=== PATIENT | female | born 1945 | race Caucasian/White ===

== ENCOUNTER → 2021-05-11 | Outpatient (CLI) | payer MEDICARE ==
[~2021-05-11] MED LIST: ACET325T9 PO; ATEN25TA PO; DIPH25CA58 PO; LEVO50TA5 PO
[2021-05-11 13:36] LABS: BASO % 1 % (0-3); EOS % 1 % (0-3); HEMATOCRIT 26.6 % (36.0-47.0); HEMOGLOBIN 8.8 g/dL (12.0-15.5); LYMPH # 1.9 x10^3/uL (1.0-4.8); LYMPH % 37 % (24-48); MEAN CORPUSCULAR HEMOGLOBIN 35 pg (25-35); MEAN CORPUSCULAR HGB CONC 33 g/dL (31-37); MEAN CORPUSCULAR VOLUME 105 fL (79-100); MONO # 0.4 x10^3/uL (0.0-1.1); MONO % 8 % (0-9); NEUT # 2.8 x10^3/uL (1.8-7.7); NEUT % 54 % (31-73); PLATELET COUNT 311 x10^3/uL (140-400); RED BLOOD COUNT 2.54 x10^6/uL (3.50-5.40); RED CELL DISTRIBUTION WIDTH 15.5 % (11.5-14.5); WHITE BLOOD COUNT 5.2 x10^3/uL (4.0-11.0)
[2021-05-11 13:54] LABS: CALCIUM 9.4 mg/dL (8.5-10.1); GFR 54.2; POTASSIUM 3.6 mmol/L (3.5-5.1)
[2021-05-11 14:02] LABS: ALBUMIN 2.8 g/dL (3.4-5.0); ALBUMIN/GLOBULIN RATIO 0.4 (1.0-1.7); TOTAL BILIRUBIN 0.4 mg/dL (0.2-1.0); TOTAL PROTEIN 9.3 g/dL (6.4-8.2)
[2021-05-14 14:10] LABS: COMMENT IMMUNOFIX SERUM Note: (.); IMMUNOGLOBULIN A 25 mg/dL (64-422); IMMUNOGLOBULIN G 4912 mg/dL (586-1602); IMMUNOGLOBULIN M 25 mg/dL (26-217)
[2021-05-14 16:10] LABS: ALBUM 3.5 g/dL (2.9-4.4); ALPHA 1 0.3 g/dL (0.0-0.4); ALPHA 2 0.8 g/dL (0.4-1.0); BETA 0.8 g/dL (0.7-1.3); GAMMA 3.8 g/dL (0.4-1.8); PROTEIN TOTAL 9.2 g/dL (6.0-8.5); SPEP AG RATIO 0.6 (0.7-1.7)
[2021-05-15 11:12] LABS: KAPPA FREE 105.4 mg/L (3.3-19.4); KAPPA LAMBDA RATIO 4.04 (0.26-1.65); LAMBDA FREE 26.1 mg/L (5.7-26.3)
== END ==
LOC: ONCLAB 12:51
PROVIDERS: ATTEND Internal Medicine Hematology & Oncology
DX: C90.00 Multiple myeloma not having achieved remission (principal)
CPT/HCPCS: 36415; 80053; 82232; 82525; 82607; 82746; 82784; 83520; 84165; 85025; 86334

== ENCOUNTER 2021-06-29 15:58 | Emergency (ER) | payer MEDICARE ==
[~2021-06-29] VITALS: Ht 147.3 cm; Wt 53.6 kg
[~2021-06-29 15:58] MED LIST changes: +ALBU2.5V8 NEB; +BUDE0.5A NEB; +DOXY100C3 PO; +FLUT16SP NS; +GUAI5SYR PO; +LORA0.5T96 PO
--- NOTE | 2021-06-29 20:33 | PHYS DOC ---
Past Medical History Additional Past Medical Histor: BACTERIAL BLOOD INFECTION 2014 Past Surgical History: Other Additional Past Surgical Histo: LOWER SIGMOID COLON 1995, LEFT SHOULDER ABCESS REMOVAL 2014 Smoking Status: Current Some Day Smoker Alcohol Use: None General Adult EDM: Chief Complaint: ABNORMAL LABS HPI: HPI: 76-year-old female past medical history of hypothyroidism, multiple myeloma, COPD on 3 L nasal cannula and hypertension, presents to the ED with her son, c/o low hemoglobin (lab paperwork with her). Patient follows with Dr. Renee and H/H was checked 06/11, was 7.1/21.9 and 06/28 was 6.8/22. Patient with no prior history of blood transfusions. Not on any anticoagulants. Presents to the ED from [facility] after patient was recently admitted to the hospital for acute respiratory failure with hypoxia (2/2 midl CHF and copd). Is not vaccinated for COVID. Has not had a positive COVID test. Patient does complain of exertional dyspnea and shortness of breath at rest. EMR was reviewed and patient's hemoglobin was 7.6 on June 05. Pt reports h/o anxiety that she takes medications for, requests anxiety medication on arrival. No h/o liver disease of GI bleeding. Review of Systems: Review of Systems: Constitutional: Denies fever or chills. [] Eyes: Denies change in visual acuity. [] HENT: Denies nasal congestion or sore throat. [] Respiratory: Denies cough or hemoptysis Cardiovascular: Denies chest pain or edema. [] GI: Denies melena, hematochezia or hematemesis : Denies incontinence or saddle anesthesia Musculoskeletal: Denies back pain or joint pain. [] Integument: Denies rash or diaphoresis Neurologic: Denies headache, focal weakness or sensory changes. [] Endocrine: Denies polyuria or polydipsia. [] Lymphatic: Denies swollen glands. [] Psychiatric: Denies depression or anxiety. [] Heart Score: C/O Chest Pain: No Risk Factors: Risk Factors: DM, Current or recent (<one month) smoker, HTN, HLP, family history of CAD, obesity. Risk Scores: Score 0 - 3: 2.5% MACE over next 6 weeks - Discharge Home Score 4 - 6: 20.3% MACE over next 6 weeks - Admit for Clinical Observation Score 7 - 10: 72.7% MACE over next 6 weeks - Early Invasive Strategies Allergies: Allergies: Allergies Coded Allergies Type Severity Reaction Last Updated Verified cetirizine Allergy Severe Swelling 05/31/21 Yes Physical Exam: PE: Constitutional: Well developed, well nourished, no acute distress, non-toxic appearance. HENT: Normocephalic, atraumatic, Eyes: EOMI, conjunctiva normal, no discharge. Neck: Normal range of motion, supple, Cardiovascular: S1/2 present, regular rhythm Lungs & Thorax: Speaking in full sentences, bilateral equal chest rise, no tachypnea or increased work of breathing, on 3L NC Abdomen: soft, no tenderness, Skin: Warm, dry, no erythema, no rash. [] Extremities: No tenderness, no cyanosis, Neurologic: Alert -has some forgetfulness, suspect early dementia, normal motor function, normal sensory function, no focal deficits noted. [] Psychologic: Affect normal, judgement normal, mood normal. [] EKG: EKG: Sinus rhythm 97 bpm, left axis deviation, normal intervals, T wave inversion lead III, PVC present, no ST elevation or ST depression, no active chest pain Radiology/Procedures: Radiology/Procedures: IMAGING REPORT Signed PATIENT: JANAE FORTUNE ACCOUNT: [id number] : 1945 LOCATION: ER AGE: 76 SEX: F EXAM STATUS: REG ER ORD. PHYSICIAN: CORIN CASTELLON DO REASON: dypnea PROCEDURE: CHEST AP ONLY Exam: Chest one view INDICATION: Dyspnea TECHNIQUE: Frontal view of the chest Comparisons: 05/29/2020 FINDINGS: The cardiomediastinal silhouette and pulmonary vessels are within normal limits. The lung and pleural spaces are clear. IMPRESSION: No acute cardiopulmonary process. Electronically signed by: Megan Henriquez MD (06/29/2021 9:59 PM) [facility] DICTATED and SIGNED BY: MEGAN HENRIQUEZ MD DATE: 06/29/21 [id number] IMAGING REPORT Signed PATIENT: JANAE FORTUNE ACCOUNT: [id number] : 1945 LOCATION: ER AGE: 76 SEX: F EXAM STATUS: REG ER ORD. PHYSICIAN: CORIN CASTELLON DO REASON: soa, r/o pe, h/o multiple myeloma, OMNI 350 80 ML IV PROCEDURE: CT ANGIOGRAPHY CHEST EXAM: CT chest with contrast - pulmonary embolus protocol CLINICAL HISTORY: Reason: soa, r/o pe, h/o multiple myeloma, OMNI 350 80 ML IV / Spl. Instructions: IV WASNT GOING IN THEN LEAKED RESCANNED 3RD TIME WITH 70 ML / History: . COMPARISON: None. TECHNIQUE: CT of the chest following the administration of intravenous contrast during the pulmonary arterial phase. Axial, coronal and sagittal reformatted images were generated including MIP images. Of note, contrast was leaking from the contrast tubing and therefore exam was repeated. ---PQRS compliance statement - One or more of the following individualized dose reduction techniques were utilized for this study: 1. Automated exposure control 2. Adjustment of the mA and/or kV according to patient size 3. Use of iterative reconstruction technique--- FINDINGS: CHEST: Diagnostic quality: Suboptimal contrast bolus despite repeating examination. Motion artifact also limits evaluation. Pulmonary emboli: No pulmonary emboli to the level of the segmental branches. More peripheral vessels are not well assessed. Right heart strain: None Pulmonary arteries: Normal in caliber. Heart is mildly enlarged. No pleural effusion. No pneumothorax. No pericardial effusion. Linear opacities lingula and medial left lower lobe likely scarring or atelectasis. Mild background of emphysematous change. 7 mm right upper lobe lung nodule (series 13 image 15). Wedge-shaped nodularity in the middle lobe is favored to represent scarring/atelectasis at the recommend close attention on follow-up. Visualized Upper abdomen: Unremarkable Bones: Multilevel degenerative changes of the spine are seen. Height loss of several mid-lower thoracic levels, age-indeterminate compression fractures but grossly stable to 05/16/2021. IMPRESSION: 1. No pulmonary emboli to the level of the segmental branches. More peripheral vessels are not well assessed. 2. 7 mm right upper lobe lung nodule. Per Fleischner Society guidelines for incidentally found solid nodule measuring 6-8 mm, initial CT follow-up is recommended in 6-12 months. Additional follow-up can be considered in 18-24 month based on risk factors. 3. Wedge-shaped nodularity in the middle lobe likely scarring or atelectasis however recommend close attention on follow-up. Electronically signed by: Rogerio Garcia MD (06/30/2021 12:34 AM) [facility] DICTATED and SIGNED BY: ROGERIO GARCIA MD DATE: 06/30/21 [id number] 0 Course & Med Decision Making: Course & Med Decision Making Pertinent Labs and Imaging studies reviewed. (See chart for details) Concern for shortness of breath in the setting of macrocytic anemia, hemoglobin 7.9 and 8 on repeat labs. Patient on her current baseline oxygen. CT of the chest did not show any pulmonary embolus but did show incidental right upper lung nodule. Imaging report printed and given to take with patient to her PCP for follow-up. Patient with no signs of active bleeding. No indication for transfusion at this time. Will discharge home with strict ED return precautions were given for syncope, chest pain, hemoptysis, increased work of breathing or worsening shortness of breath. Encouraged urgent outpatient follow-up with PMD and hematology/oncology for management of multiple myeloma and anemia. Life- threatening processes were considered but are low suspicion at this time, given history, physical exam and ED workup. Pt was educated on all prescription medications and adverse effects. All patient's questions were answered and pt was stable at time of discharge. Life/limb-threatening differential includes but is not limited to, ACS, dysrhythmia, pneumothorax or hemothorax, pulmonary embolus, pneumonia, bronchoconstriction, pulmonary edema, angioedema, epiglottitis, tracheitis, Alton's angina, RPA/COATING OPERATOR, anaphylaxis, angioedema, cardiac tamponade or murmurs, pericarditis, myocarditis, poisoning or toxicity, sepsis or autoimmune/neurologic disease. I have spoken with the patient and/or caregivers. I explained the patient's condition, diagnoses and treatment plan based on the information available to me at this time. I have answered the patient and/or caregiver's questions and addressed any concerns. The patient and/or caregivers have a good understanding of patient's diagnosis, condition and treatment plan as can be expected at this point. Vital signs have been stable. Patient's condition is stable and appropriate for discharge from the emergency department. Patient will pursue further outpatient evaluation with primary care physician or other designated or consulting physician as outlined in the discharge instructions. The patient and/or caregivers are agreeable to this plan of care and follow-up instructions have been explained in detail. The patient and/or caregivers have received these instructions in written form and have expressed an understanding of the discharge instructions. The patient and/or caregivers are aware that any significant change of condition or worsening of symptoms should prompt immediate return to this or the closest emergency department or pa ll to 911. Corinne Disclaimer: Corinne Disclaimer: This electronic medical record was generated, in whole or in part, using a voice recognition dictation system. Departure Departure Impression: Primary Impression: Macrocytic anemia Additional Impressions: Multiple myeloma Lung nodule Disposition: HOME / SELF CARE / HOMELESS Condition: STABLE Referrals: FERN NUNEZ MD (PCP) Follow-up with your primary care physician in 24 to 48 hours OR FOLLOW UP WITH FAMILY MEDICINE: [address] [facility] [place] [address] Patient Instructions: Anemia, Nonspecific-Brief, Multiple Myeloma Additional Instructions: FOLLOW UP WITH: FOR DEFINITIVE MANAGEMENT of anemia and multiple myeloma Hematology/Oncology [facility] [address] [facility] [address] [place] [address] EMERGENCY DEPARTMENT GENERAL DISCHARGE INSTRUCTIONS Thank you for coming to [facility] Emergency Department (ED) today and trusting us with you care. We trust that you had a positive experience in our Emergency Department. If you wish to speak to the department management, you may call the Director at [phone]. YOUR FOLLOW UP INSTRUCTIONS ARE FOLLOWS: 1. Do you have a private Doctor? If you do not have a private doctor, please ask for a resource list of physicians or clinics that may be able to assist you with follow up care. 2. The Emergency Physicain has interpreted your x-rays. The X-Ray specialist will also review them. If there is a change in the findings, you will be notified in 48 hours when at all possible. 3. A lab test or culture has been done, your results will be reviewed and you will be notified if you need a change in treatment. ADDITIONAL INSTRUCTIONS AND INFORMATION: 1. Your care today has been supervised by a physician who is specially trained in emergency care. Many problems require more than one evaluation for a complete diagnosis and treatment. We recommend that you schedule your follow up appointment as recommended to ensure complete treatment of you illness or injury. If you are unable to obtain follow up care and continue to have a problem, or if your condition worsens, we recommend that you return to the ED. 2. We are not able to safely determine your condition over the phone nor are we able to give sound medical advice over the phone. For these safety reasons, if you call for medical advice we will ask you to come to the ED for further evaluation. 3. If you have any questions regarding these discharge instructions please call the ED at [phone]. SAFETY INFORMATION: In the interest of safety, wellness, and injury prevention; we encourage you to wear your sealbelt, if you smoke; quite smoking, and we encourage family to use a protective helmet for bicycling and other sporting events that present an increased risk for head injury. IF YOUR SYMPTOMS WORSEN OR NEW SYMPTOMS DEVELOP, OR YOU HAVE CONCERNS ABOUT YOUR CONDITION; OR IF YOUR CONDITION WORSENS WHILE YOU ARE WAITING FOR YOUR FOLLOW UP APPOINTMENT; EITHER CONTACT YOUR PRIMARY CARE DOCTOR, THE PHYSICIAN WHOSE NAME AND NUMBER YOU WERE GIVEN, OR RETURN TO THE ED IMMEDIATELY. CORIN FISH DO Jun 29, 2021 20:33
[2021-06-29] MEDS ORDERED: IV NORMAL SALINE 500ML BAG 500 ML IV ONE (21:00)
[2021-06-29 21:19] LABS: BASO % 1 % (0-3); EOS % 1 % (0-3); HEMATOCRIT 22.9 % (36.0-47.0); HEMOGLOBIN 7.9 g/dL (12.0-15.5); LYMPH # 1.5 x10^3/uL (1.0-4.8); LYMPH % 37 % (24-48); MEAN CORPUSCULAR HEMOGLOBIN 35 pg (25-35); MEAN CORPUSCULAR HGB CONC 34 g/dL (31-37); MEAN CORPUSCULAR VOLUME 103 fL (79-100); MONO # 0.4 x10^3/uL (0.0-1.1); MONO % 10 % (0-9); NEUT % 51 % (31-73); PLATELET COUNT 313 x10^3/uL (140-400); RED BLOOD COUNT 2.22 x10^6/uL (3.50-5.40); RED CELL DISTRIBUTION WIDTH 15.8 % (11.5-14.5)
[2021-06-29 21:28] LABS: CALCIUM 8.2 mg/dL (8.5-10.1); CREATININE 0.7 mg/dL (0.6-1.0); GFR 81.8; POTASSIUM 3.3 mmol/L (3.5-5.1); PROTHROMBIN TIME PATIENT 13.2 SEC (11.7-14.0)
[2021-06-29 21:36] LABS: ALBUMIN 2.6 g/dL (3.4-5.0); ALBUMIN/GLOBULIN RATIO 0.4 (1.0-1.7); TOTAL BILIRUBIN 0.2 mg/dL (0.2-1.0); TOTAL PROTEIN 8.5 g/dL (6.4-8.2)
--- NOTE | 2021-06-29 22:01 | RAD ---
Exam: Chest one view INDICATION: Dyspnea TECHNIQUE: Frontal view of the chest Comparisons: 05/29/2020 FINDINGS: The cardiomediastinal silhouette and pulmonary vessels are within normal limits. The lung and pleural spaces are clear. IMPRESSION: No acute cardiopulmonary process. Electronically signed by: Megan Mckeon MD (06/29/2021 9:59 PM) [facility]
[2021-06-29] MEDS ORDERED: IOHEXOL 350 MG/ML 100 ML VIAL. IV ONE (23:15)
[2021-06-29] MEDS ORDERED: CONTRAST GIVEN. MC PRN (23:15)
--- NOTE | 2021-06-30 00:36 | RAD ---
EXAM: CT chest with contrast - pulmonary embolus protocol CLINICAL HISTORY: Reason: soa, r/o pe, h/o multiple myeloma, OMNI 350 80 ML IV / Spl. Instructions: I V WASNT GOING IN THEN LEAKED RESCANNED 3RD TIME WITH 70 ML / History: . COMPARISON: None. TECHNIQUE: CT of the chest following the administration of intravenous contrast during the pulmonary arterial phase. Axial, coronal and sagittal reformatted images were generated including MIP images. O f note, contrast was leaking from the contrast tubing and therefore exam was repeated. ---PQRS compliance statement - One or more of the following individualized dose reduction techniques were utilized for this study: 1. Automated exposure control 2. Adjustment of the mA and/or kV according to patient size 3. Use of iterative reconstruction technique--- FINDINGS: CHEST: Diagnostic quality: Suboptimal contrast bolus despite repeating examination. Motion artifact also martines its evaluation. Pulmonary emboli: No pulmonary emboli to the level of the segmental branches. More peripheral vessel s are not well assessed. Right heart strain: None Pulmonary arteries: Normal in caliber. Heart is mildly enlarged. No pleural effusion. No pneumothorax. No pericardial effusion. Linear opacities lingula and medial left lower lobe likely scarring or atelectasis. Mild background o f emphysematous change. 7 mm right upper lobe lung nodule (series 13 image 15). Wedge-shaped nodulari ty in the middle lobe is favored to represent scarring/atelectasis at the recommend close attention o n follow-up. Visualized Upper abdomen: Unremarkable Bones: Multilevel degenerative changes of the spine are seen. Height loss of several mid-lower thorac ic levels, age-indeterminate compression fractures but grossly stable to 05/16/2021. IMPRESSION: 1. No pulmonary emboli to the level of the segmental branches. More peripheral vessels are not well assessed. 2. 7 mm right upper lobe lung nodule. Per Fleischner Society guidelines for incidentally found solid nodule measuring 6-8 mm, initial CT follow-up is recommended in 6-12 months. Additional follow-up ca n be considered in 18-24 month based on risk factors. 3. Wedge-shaped nodularity in the middle lobe likely scarring or atelectasis however recommend close attention on follow-up. Electronically signed by: Rogerio Hopkins MD (06/30/2021 12:34 AM) [facility]
[2021-06-30 02:09] VITALS: BP 166/85
--- NOTE | 2021-06-30 03:54 | EKG ---
[facility] [address] [place] [address] Test Date: 2021-06-29 Test Time: 22:24:24 Pat Name: JANAE FORTUNE Department: Room: Gender: F Mailing Jogger: : 1945 Requested By: CORIN CASTELLON Order Number: [id number] Reading MD: Measurements Intervals Rowley Rate: 97 P: -24 MD: 132 QRS: -21 QRSD: 84 T: 11 QT: 334 QTc: 428 Interpretive Statements SINUS RHYTHM VENTRICULAR PREMATURE COMPLEX(ES) LEFTWARD AXIS CONSIDER LEFT VENTRICULAR HYPERTROPHY ST & T ABNORMALITY, CONSIDER HIGH LATERAL ISCHEMIA OR LEFT VENTRICULAR STRAIN ABNORMAL ECG RI6.01 No previous ECG available for comparison
== END 2021-06-30 02:40 | disposition home or self-care (01) ==
LOC: ER 15:58
DX: D53.9 Nutritional anemia, unspecified (principal); C90.00 Multiple myeloma not having achieved remission; R91.1 Solitary pulmonary nodule; F17.200 Nicotine dependence, unspecified, uncomplicated
CPT/HCPCS: 36415; 71045; 71275; 80053; 84484; 85018; 85025; 85610; 85730; 86850; 86900; 86901; 93005; 96361; 96374; 99285; J2060; J7040; Q9967; 96375

== ENCOUNTER → 2021-07-17 | Outpatient (CLI) | payer MEDICARE ==
[2021-07-02 13:08] VITALS: BP 126/71
[2021-07-17 11:22] LABS: BASO # 0.1 x10^3/uL (0.0-0.2); BASO % 1 % (0-3); EOS % 0 % (0-3); HEMATOCRIT 24.4 % (36.0-47.0); LYMPH # 0.7 x10^3/uL (1.0-4.8); LYMPH % 8 % (24-48); MEAN CORPUSCULAR HEMOGLOBIN 32 pg (25-35); MEAN CORPUSCULAR HGB CONC 33 g/dL (31-37); MEAN CORPUSCULAR VOLUME 97 fL (79-100); MONO # 0.6 x10^3/uL (0.0-1.1); MONO % 6 % (0-9); NEUT # 8.4 x10^3/uL (1.8-7.7); NEUT % 86 % (31-73); PLATELET COUNT 422 x10^3/uL (140-400); RED BLOOD COUNT 2.52 x10^6/uL (3.50-5.40); RED CELL DISTRIBUTION WIDTH 18.9 % (11.5-14.5); WHITE BLOOD COUNT 9.8 x10^3/uL (4.0-11.0)
[2021-07-17 11:30] LABS: CREATININE 0.9 mg/dL (0.6-1.0); GFR 61.2; POTASSIUM 3.7 mmol/L (3.5-5.1)
[2021-07-17 11:36] LABS: ALBUMIN 1.8 g/dL (3.4-5.0); ALBUMIN/GLOBULIN RATIO 0.3 (1.0-1.7); TOTAL BILIRUBIN 0.3 mg/dL (0.2-1.0); TOTAL PROTEIN 7.8 g/dL (6.4-8.2)
[2021-07-17 12:17] LABS: % BANDS 7 % (0-9); % LYMPHS 7 % (24-48); % MONOS 3 % (0-10); % SEGS 83 % (35-66); PLT ESTIMATE ADEQUATE (ADEQUATE)
[2021-07-18 13:30] LABS: ALBUM 2.5 g/dL (2.9-4.4); ALPHA 1 0.4 g/dL (0.0-0.4); ALPHA 2 0.9 g/dL (0.4-1.0); BETA 0.7 g/dL (0.7-1.3); COMMENT IMMUNOFIX SERUM Note: (.); GAMMA 2.4 g/dL (0.4-1.8); IMMUNOGLOBULIN A 45 mg/dL (64-422); IMMUNOGLOBULIN G 3067 mg/dL (586-1602); IMMUNOGLOBULIN M 22 mg/dL (26-217); PROTEIN TOTAL 6.9 g/dL (6.0-8.5); SPEP AG RATIO 0.6 (0.7-1.7)
[2021-07-18 14:13] LABS: KAPPA FREE 48.1 mg/L (3.3-19.4); KAPPA LAMBDA RATIO 2.39 (0.26-1.65); LAMBDA FREE 20.1 mg/L (5.7-26.3)
== END ==
LOC: ONCLAB 11:03
PROVIDERS: ATTEND Internal Medicine Hematology & Oncology
DX: C90.00 Multiple myeloma not having achieved remission (principal)
CPT/HCPCS: 36415; 80053; 82784; 83520; 84165; 85007; 85025; 86334

== ENCOUNTER → 2021-07-20 | Outpatient (CLI) | payer MEDICARE ==
[2021-07-02 13:08] VITALS: BP 126/71
--- NOTE | 2021-07-20 10:32 | RAD ---
EXAM: Abdomen sonogram. HISTORY: Pain. TECHNIQUE: Sonographic imaging of the abdomen was performed. COMPARISON: CT dated 05/19/2021. FINDINGS: The liver is enlarged. There is coarse hepatic echotexture. No focal hepatic lesion is seen . There is cholelithiasis. There is no evidence of cholecystitis. The common bile duct is normal in c aliber for patient age. There is a 2.9 cm cyst within the inferior left kidney. The right kidney is u nremarkable. The pancreas, spleen, aorta and inferior vena cava are partially obscured due to bowel g as and patient immobility. There is aortic atherosclerosis. IMPRESSION: 1. Cholelithiasis. There is no convincing cholecystitis. 2. Enlarged liver with coarse hepatic echotexture. No discrete hepatic lesion is seen. 3. 2.9 cm left renal cyst. This is simple in appearance on the comparison CT. 4. Obscured midline structures due to bowel gas and patient immobility. Electronically signed by: Katina Gillis MD (07/20/2021 10:30 AM) [id number]
== END ==
LOC: US 09:06
PROVIDERS: ATTEND Internal Medicine Gastroenterology
DX: K80.20 Calculus of gallbladder without cholecystitis without obstruction (principal); N28.1 Cyst of kidney, acquired; R16.0 Hepatomegaly, not elsewhere classified; I70.0 Atherosclerosis of aorta
CPT/HCPCS: 76700

== ENCOUNTER → 2021-07-27 | Outpatient (CLI) | payer MEDICARE ==
[2021-07-02 13:08] VITALS: BP 126/71
[2021-07-27 11:42] LABS: BASO # 0.1 x10^3/uL (0.0-0.2); BASO % 1 % (0-3); EOS % 0 % (0-3); HEMATOCRIT 23.9 % (36.0-47.0); HEMOGLOBIN 7.8 g/dL (12.0-15.5); LYMPH # 0.9 x10^3/uL (1.0-4.8); LYMPH % 21 % (24-48); MEAN CORPUSCULAR HEMOGLOBIN 32 pg (25-35); MEAN CORPUSCULAR HGB CONC 33 g/dL (31-37); MEAN CORPUSCULAR VOLUME 98 fL (79-100); MONO # 0.3 x10^3/uL (0.0-1.1); MONO % 8 % (0-9); NEUT # 2.9 x10^3/uL (1.8-7.7); NEUT % 70 % (31-73); PLATELET COUNT 330 x10^3/uL (140-400); RED BLOOD COUNT 2.44 x10^6/uL (3.50-5.40); RED CELL DISTRIBUTION WIDTH 19.4 % (11.5-14.5); WHITE BLOOD COUNT 4.2 x10^3/uL (4.0-11.0)
[2021-07-27 11:47] LABS: CALCIUM 7.7 mg/dL (8.5-10.1); CREATININE 0.9 mg/dL (0.6-1.0); GFR 61.2; POTASSIUM 3.8 mmol/L (3.5-5.1)
[2021-07-27 11:53] LABS: ALBUMIN 2.1 g/dL (3.4-5.0); ALBUMIN/GLOBULIN RATIO 0.4 (1.0-1.7); TOTAL BILIRUBIN 0.1 mg/dL (0.2-1.0); TOTAL PROTEIN 7.3 g/dL (6.4-8.2)
== END ==
LOC: ONCLAB 11:22
PROVIDERS: ATTEND Internal Medicine Hematology & Oncology
DX: C90.00 Multiple myeloma not having achieved remission (principal)
CPT/HCPCS: 36415; 80053; 85025

== ENCOUNTER → 2021-08-03 | Outpatient (CLI) | payer MEDICARE ==
[2021-07-02 13:08] VITALS: BP 126/71
[2021-08-03 12:35] LABS: BASO # 0.1 x10^3/uL (0.0-0.2); BASO % 2 % (0-3); EOS % 0 % (0-3); HEMATOCRIT 23.6 % (36.0-47.0); HEMOGLOBIN 7.7 g/dL (12.0-15.5); LYMPH # 0.8 x10^3/uL (1.0-4.8); LYMPH % 23 % (24-48); MEAN CORPUSCULAR HEMOGLOBIN 32 pg (25-35); MEAN CORPUSCULAR HGB CONC 33 g/dL (31-37); MEAN CORPUSCULAR VOLUME 99 fL (79-100); MONO # 0.3 x10^3/uL (0.0-1.1); MONO % 8 % (0-9); NEUT # 2.3 x10^3/uL (1.8-7.7); NEUT % 67 % (31-73); PLATELET COUNT 234 x10^3/uL (140-400); RED BLOOD COUNT 2.39 x10^6/uL (3.50-5.40); RED CELL DISTRIBUTION WIDTH 19.9 % (11.5-14.5); WHITE BLOOD COUNT 3.5 x10^3/uL (4.0-11.0)
[2021-08-03 12:40] LABS: CALCIUM 7.6 mg/dL (8.5-10.1); CREATININE 0.9 mg/dL (0.6-1.0); GFR 61.2; POTASSIUM 4.2 mmol/L (3.5-5.1)
[2021-08-03 12:46] LABS: ALBUMIN 2.4 g/dL (3.4-5.0); ALBUMIN/GLOBULIN RATIO 0.5 (1.0-1.7); TOTAL BILIRUBIN 0.2 mg/dL (0.2-1.0); TOTAL PROTEIN 7.1 g/dL (6.4-8.2)
== END ==
LOC: ONCLAB 12:06
PROVIDERS: ATTEND Internal Medicine Hematology & Oncology
DX: C90.00 Multiple myeloma not having achieved remission (principal)
CPT/HCPCS: 36415; 80053; 85025

== ENCOUNTER → 2021-08-13 | Outpatient (CLI) | payer MEDICARE ==
[2021-07-02 13:08] VITALS: BP 126/71
[2021-08-13 12:19] LABS: BASO % 1 % (0-3); EOS % 1 % (0-3); HEMATOCRIT 26.3 % (36.0-47.0); HEMOGLOBIN 8.7 g/dL (12.0-15.5); LYMPH # 0.9 x10^3/uL (1.0-4.8); LYMPH % 24 % (24-48); MEAN CORPUSCULAR HEMOGLOBIN 33 pg (25-35); MEAN CORPUSCULAR HGB CONC 33 g/dL (31-37); MEAN CORPUSCULAR VOLUME 100 fL (79-100); MONO # 0.4 x10^3/uL (0.0-1.1); MONO % 10 % (0-9); NEUT # 2.4 x10^3/uL (1.8-7.7); NEUT % 65 % (31-73); PLATELET COUNT 289 x10^3/uL (140-400); RED BLOOD COUNT 2.62 x10^6/uL (3.50-5.40); WHITE BLOOD COUNT 3.7 x10^3/uL (4.0-11.0)
[2021-08-13 12:30] LABS: ANION GAP 5 (6-14); BLOOD UREA NITROGEN 12 mg/dL (7-20); BUN/CREATININE RATIO 15 (6-20); CALCIUM 7.8 mg/dL (8.5-10.1); CARBON DIOXIDE 31 mmol/L (21-32); CHLORIDE 98 mmol/L (98-107); CREATININE 0.8 mg/dL (0.6-1.0); GFR 70.1; GLUCOSE 94 mg/dL (70-99); POTASSIUM 3.8 mmol/L (3.5-5.1); SODIUM 134 mmol/L (136-145)
[2021-08-13 12:36] LABS: ALBUMIN 2.7 g/dL (3.4-5.0); ALBUMIN/GLOBULIN RATIO 0.6 (1.0-1.7); ALK PHOS 91 U/L (46-116); ALT (SGPT) 16 U/L (14-59); AST (SGOT) < 5 U/L (15-37); TOTAL BILIRUBIN 0.2 mg/dL (0.2-1.0); TOTAL PROTEIN 7.3 g/dL (6.4-8.2)
[2021-08-14 13:24] LABS: COMMENT IMMUNOFIX SERUM Note: (.); IMMUNOGLOBULIN A 21 mg/dL (64-422); IMMUNOGLOBULIN G 2314 mg/dL (586-1602); IMMUNOGLOBULIN M 19 mg/dL (26-217)
[2021-08-14 14:16] LABS: ALBUM 3.4 g/dL (2.9-4.4); ALPHA 1 0.2 g/dL (0.0-0.4); ALPHA 2 0.7 g/dL (0.4-1.0); BETA 0.6 g/dL (0.7-1.3); GAMMA 1.9 g/dL (0.4-1.8); PROTEIN TOTAL 6.8 g/dL (6.0-8.5)
[2021-08-15 15:17] LABS: KAPPA FREE 24.8 mg/L (3.3-19.4); KAPPA LAMBDA RATIO 2.12 (0.26-1.65); LAMBDA FREE 11.7 mg/L (5.7-26.3)
== END ==
LOC: ONCLAB 11:46
PROVIDERS: ATTEND Internal Medicine Hematology & Oncology
DX: C90.00 Multiple myeloma not having achieved remission (principal)
CPT/HCPCS: 36415; 80053; 82784; 83520; 84165; 85025; 86334